=== PATIENT | male | born 1970 | race Caucasian/White ===

== ENCOUNTER 2020-12-25 11:32 | Emergency (ER) | payer BC ==
[2020-12-25] MEDS ORDERED: Aspirin 81 MG Tab.Chew PO ONE (11:56)
[2020-12-25 12:16] LABS: PTT,PARTIAL THROMBOPLSTIN TIME 23.2 SEC (23.2-32.3)
[2020-12-25 12:20] LABS: CHLORIDE,CL 104 mEq/L (98-106); SODIUM,NA 141 mEq/L (136-145)
[2020-12-25] MEDS ORDERED: diphenhydrAMINE 50 MG/ML SDV IVPUSH ONE (12:53)
[2020-12-25] MEDS ORDERED: Iopamidol 755 Mg/ML 100 ML Bottle IVPUSH ONE (13:24)
--- NOTE | 2020-12-25 16:22 | EDM.PDOC ---
ED HPI GENERAL MEDICAL PROBLEM - General Chief Complaint: Chest Pain Stated Complaint: PAIN IN NECK Time Seen by Provider: 12/25/20 12:48 Source of Information: Reports: Patient History Limitations: Reports: No Limitations - History of Present Illness INITIAL COMMENTS - FREE TEXT/NARRATIVE: Lakhwinder is a 50 yo male who presents to the ED via private vehicle with complaints of chest heaviness extending up into bilateral shoulders. States it is like a cramping discomfort or muscle spasms to bilateral shoulders that radiates to bilateral chest area with chest tightness. Admits to having a hard time taking a deep breath. Symptoms started around 10am this morning. Muscle pain of 2/10 to chest and shoulders. Admits he has significantly improved since presenting to the ED. Admits his breathing has gotten much better as well. Nurse started chest pain protocol and ASA 81mg x4 tabs given. EKG and chest xray completed. Labs completed. Telemetry on and sinus tachycardia at 105bpm. Lakhwinder denies any known cardiac history. Upon my arrival patient admits he has been going through a lot lately with an autoimmune disorder. States he underwent resection of 60% of his liver in April secondary to the disease. Admits he has been working with [facility] in [place] (where he resides) and they have been in touch with the [employer] in [place]. 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 Onset Date: 12/25/20 Onset Time: 10:30 Duration: Improving Location: Reports: Chest Quality: Reports: Pressure Worsens with: Reports: Breathing, Movement Associated Symptoms: Reports: Shortness of Breath Bilateral Upper Chest Pain Score (Numeric/FACES): 2 - Related Data Allergies Allergy/AdvReac Type Severity Reaction Status Date / Time gluten Allergy Hives Verified 12/25/20 12:33 Iodinated Contrast Media Allergy Itching Verified 12/25/20 12:33 Penicillins Allergy Itching Verified 12/25/20 12:33 Home Meds: Home Meds Cholecalciferol (Vitamin D3) [Vitamin D3] 2 cap PO DAILY 12/25/20 [History] Fluticasone Propionate [Flonase] 1 sprays INH ASDIRECTED 12/25/20 [History] Levothyroxine 1 tab PO DAILY 12/25/20 [History] Multivitamin 1 tab PO DAILY 12/25/20 [History] Omeprazole 20 mg PO DAILY 12/25/20 [History] riTUXimab [Rituxan] 1 infusion IV ASDIRECTED 12/25/20 [History] Past Medical History HEENT History: Reports: Other (See Below) Other HEENT History: sinus polyp removal 2005, 2007 Gastrointestinal History: Reports: Other (See Below) Endocrine/Metabolic History: Reports: Hypothyroidism, Other (See Below) Other Endocrine/Metabolic History: IGg 4 auto immune disease - Past Surgical History HEENT Surgical History: Reports: Polypectomy GI Surgical History: Reports: Cholecystectomy Other GI Surgeries/Procedures: liver resection of 60% Social & Family History - Tobacco Use Tobacco Use Status *Q: Never Tobacco User - Caffeine Use Caffeine Use: Reports: Coffee, Soda - Recreational Drug Use Recreational Drug Use: No ED ROS GENERAL - Review of Systems Review Of Systems: See Below Constitutional: Denies: Fever, Chills, Weakness HEENT: Reports: No Symptoms Respiratory: Reports: Shortness of Breath. Denies: Wheezing, Cough Cardiovascular: Reports: Chest Pain. Denies: Blood Pressure Problem, Dyspnea on Exertion, Edema, Palpitations GI/Abdominal: Reports: No Symptoms : Reports: No Symptoms Musculoskeletal: Reports: No Symptoms Skin: Reports: No Symptoms Neurological: Reports: No Symptoms ED EXAM, GENERAL - Physical Exam Exam: See Below General Appearance: Alert, Anxious. No: Mild Distress, Moderate Distress, Severe Distress Eye Exam: Bilateral Eye: Normal Inspection Ears: Normal External Exam, Hearing Grossly Normal Nose: Normal Inspection, No Blood Throat/Mouth: Normal Inspection, Normal Voice, No Airway Compromise Head: Atraumatic, Normocephalic Neck: Normal Inspection, Supple Respiratory/Chest: No Respiratory Distress, Lungs Clear, Normal Breath Sounds, No Accessory Muscle Use, Chest Non-Tender Cardiovascular: Normal Peripheral Pulses, Regular Rate, Rhythm, No Edema, No Murmur GI/Abdominal: Normal Bowel Sounds, Soft, Non-Tender, No Organomegaly, No Distention Extremities: Normal Inspection, No Pedal Edema, Normal Capillary Refill Neurological: Alert, Oriented, Normal Cognition, No Motor/Sensory Deficits Psychiatric: Anxious Skin Exam: Warm, Dry, Intact, Normal Color, No Rash #1 Interpretation EKG Date: 12/25/20 Rhythm: Other (Sinus tachycardia) Rate (Beats/Min): 105 Comparison: NA - No Prior EKG Course - Vital Signs Last Recorded V/S: Last Vital Signs Temp 98.8 F 12/25/20 13:40 Pulse 92 12/25/20 13:40 Resp 18 12/25/20 13:40 BP 134/88 12/25/20 13:40 Pulse Ox 98 12/25/20 13:40 - Orders/Labs/Meds Orders: Active Orders 24 hr Category Date Time Status CTA Chest W WO Contrast [Ang Chest] [CT] Stat Exams 12/25/20 12:52 Taken Chest 2V [CR] Stat Exams 12/25/20 11:52 Taken Labs: Laboratory Tests 12/25/20 12/25/20 12/25/20 Range/Units 11:52 11:52 11:52 WBC 14.3 H (5.0-10.0) 10^3/uL RBC 4.95 (4.50-6.00) 10^6/uL Hgb 15.0 (14.0-18.0) g/dL Hct 43.4 (40.0-54.0) % MCV 87.7 (82.0-94.0) fL MCH 30.3 (27.0-32.0) pg MCHC 34.6 (33.0-38.0) g/dL RDW Coeff of Mj 14.2 (11.0-15.0) % Plt Count 292 (150-400) 10^3/uL Neut % (Auto) 78.6 (35-85) % Lymph % (Auto) 11.1 (10-55) % [place] % (Auto) 9.3 (0-16) % Eos % (Auto) 0.8 (0-5) % Baso % (Auto) 0.2 (0-3) % Neut # (Auto) 11.22 H (1.80-7.00) 10^3/uL Lymph # (Auto) 1.59 (1.00-4.80) 10^3/uL [place] # (Auto) 1.33 H (0.00-0.80) 10^3/uL Eos # (Auto) 0.11 (0.00-0.45) 10^3/uL Baso # (Auto) 0.03 10^3/uL PT 10.8 (9.7-12.3) SEC INR 0.99 (0.92-1.18) APTT 23.2 (23.2-32.3) SEC D-Dimer, Quantitative 0.54 H (0.00-0.50) Sodium 141 (136-145) mEq/L Potassium 3.9 (3.5-5.0) mEq/L Chloride 104 (98-106) mEq/L Carbon Dioxide 25 (21-32) mmol/L BUN 16 (7-18) mg/dL Creatinine 1.0 (0.7-1.3) mg/dL Est Cr Clr Drug Dosing 89.22 mL/min Estimated GFR (MDRD) > 60 (>=60) mL/min Glucose 110 H (75-99) mg/dL Calcium 9.0 (8.4-10.1) mg/dL Magnesium 1.8 (1.8-2.4) mg/dL Total Bilirubin 0.7 (0.0-1.0) mg/dL AST 52 H (15-37) U/L ALT 101 H (12-78) U/L Alkaline Phosphatase 231 H (46-116) U/L Lactate Dehydrogenase 207 H (100-190) U/L Creatine Kinase 83 (35-232) U/L Troponin I < 0.017 (0.00-0.06) ng/mL Total Protein 7.1 (6.4-8.2) g/dL Albumin 3.5 (3.4-5.0) g/dL Lipase 125 (73-393) U/L Meds: Medications Discontinued Medications Generic Name Dose Route Start Last Admin Trade Name Freq PRN Reason Stop Dose Admin Aspirin 324 mg 12/25/20 11:56 12/25/20 11:47 Aspirin 81 Mg Tab.Chew PO 12/25/20 11:57 324 mg ONETIME ONE Administration Diphenhydramine HCl 50 mg 12/25/20 12:53 12/25/20 12:57 Diphenhydramine 50 Mg/Ml Sdv IVPUSH 12/25/20 12:54 50 mg ONETIME ONE Administration Iopamidol 100 ml 12/25/20 13:24 12/25/20 13:25 Iopamidol 755 Mg/Ml 100 Ml Bottle IVPUSH 12/25/20 13:25 100 ml ONETIME ONE Administration - Radiology Interpretation Free Text/Narrative:: CTA chest negative. No acute cardiopulmonary findings. Patient was given IV benadryl prior to CTA secondary to itching in the past with IV contrast. No complications or itching post CT today. CT Results Date: 12/25/20 Departure - Departure Time of Disposition: 14:40 Disposition: Home, Self-Care 01 Clinical Impression: Acute nonspecific chest pain with low risk of coronary artery disease, Anxiety Instructions: Generalized Anxiety Disorder, Adult, Nonspecific Chest Pain, Adult, [id number] Referrals: PCP,Not In Area [Primary Care Provider] - Forms: ED Department Discharge Additional Instructions: 1) Cardiac work up is negative today 2) EKG, chest x-ray, CT chest were all negative 3) Laboratory work was all stable 4) May return to normal activity 5) If any concerns at all, may call as well [phone] 6) Follow up with primary in 1-2 weeks for recheck, return sooner if any concerns at all Sepsis Event Note (ED) - Evaluation Sepsis Screening Result: No Definite Risk - Focused Exam Vital Signs: Vital Signs Temp Pulse Resp BP Pulse Ox 12/25/20 13:40 98.8 F 92 18 134/88 98 12/25/20 13:25 98.8 F 97 18 119/95 H 97 12/25/20 13:10 98.9 F 99 18 135/93 H 97 12/25/20 12:55 98.9 F 98 18 142/98 H 98 12/25/20 12:40 99 F 97 14 122/88 97 12/25/20 12:25 99 F 101 H 9 L 129/89 98 12/25/20 12:10 99 F 103 H 14 130/95 H 97 12/25/20 11:55 98.1 F 99 12 123/85 99 12/25/20 11:40 97.6 F 107 H 18 136/93 H 98 - Problem List & Annotations (1) Acute nonspecific chest pain with low risk of coronary artery disease SNOMED Code(s): 788232971 Code(s): R07.9 - CHEST PAIN, UNSPECIFIED; Z91.89 - OTH PERSONAL RISK FACTORS, NOT ELSEWHERE CLASSIFIED Status: Acute (2) Anxiety SNOMED Code(s): 24925783 Code(s): F41.9 - ANXIETY DISORDER, UNSPECIFIED Status: Acute - My Orders Last 24 Hours: My Active Orders 12/25/20 11:52 Chest 2V [CR] Stat 12/25/20 12:52 CTA Chest W WO Contrast [Ang Chest] [CT] Stat - Assessment/Plan Last 24 Hours: My Active Orders 12/25/20 11:52 Chest 2V [CR] Stat 12/25/20 12:52 CTA Chest W WO Contrast [Ang Chest] [CT] Stat Plan: Cardiac work up was grossly unremarkable. Patient was slightly tachycardic on arrival but did slow down into the 80-90's. Symptoms subsided while in ED. CTA chest was negative for PE or any acute findings. Discussed findings with Lakhwinder and his . Discussed into detail anxiety with both as well. Patient is currently asymptomatic and will discharge at this time. Patient in agreement and discharged in satisfactory condition.
== END 2020-12-25 14:24 | disposition home or self-care (01) ==
LOC: CC.ED 11:32
DX: I25.10 Atherosclerotic heart disease of native coronary artery without angina pectoris (principal); F41.9 Anxiety disorder, unspecified; M54.2 Cervicalgia; R00.0 Tachycardia, unspecified; E03.9 Hypothyroidism, unspecified; Z91.018 Allergy to other foods; Z91.041 Radiographic dye allergy status; Z88.0 Allergy status to penicillin; Z79.899 Other long term (current) drug therapy
CPT/HCPCS: 36415; 71046; 71275; 80053; 82550; 83615; 83690; 83735; 84484; 85025; 85379; 85610; 85730; 96374; 99285; A9270; J1200; Q9967